=== PATIENT | male | born 1970 | race American Indian/Alaskan Native ===

== ENCOUNTER 2016-09-29 09:20 | Emergency (ER) | payer SELFPAY ==
[2016-09-29 09:46] VITALS: BP 124/71
[2016-09-29] MEDS ORDERED: XYLOCAINE 1% MPF 5 mL INFILTRATI ONE (11:46)
[2016-09-29] MEDS ORDERED: ROCEPHIN IM ONE (11:46)
[2016-09-29] MEDS ORDERED: ZITHROMAX PO ONE (11:47)
--- NOTE | 2016-09-29 11:52 | Emergency Department Report ---
ED Male HPI - General Chief complaint: Urogenital-Male Stated complaint: TREATMENT FOR TRICHOMONIASIS Time Seen by Provider: 09/29/16 11:46 Source: patient Mode of arrival: Ambulatory Limitations: No Limitations - History of Present Illness Initial comments: 46-year-old male past medical history none presents with complaint of exposure to Trichomonas gonorrhea and chlamydia. Patient states that yesterday when of his sex partners called him and informed them that she had been exposed to all 3 and had been treated. Patient denies any discharge no lesions and groin or genital region. States he came in for treatment today as he has a confirmed exposure. Denies any fevers chills abdominal pain no testicular pain. No dysuria no penile lesions no increased urinary frequency reported by the patient. Onset/Timin -: days(s) - Related Data Previous Rx's Medication Instructions Recorded Last Taken Type Hyoscyamine Subl [Levsin Sl] 0.125 mg SL Q4HR PRN #7 tablet 06/24/13 Unknown Rx Promethazine [Phenergan] 25 mg PO Q6H PRN #14 tablet 06/24/13 Unknown Rx metroNIDAZOLE [Flagyl TAB] 500 mg PO Q12HR #14 tab 09/29/16 Unknown Rx Allergies Allergy/AdvReac Type Severity Reaction Status Date / Time No Known Allergies Allergy Unverified 06/24/13 13:38 ED Review of Systems ROS: Stated complaint: TREATMENT FOR TRICHOMONIASIS Other details as noted in HPI Constitutional: denies: chills, fever Eyes: denies: eye pain, eye discharge, vision change ENT: denies: ear pain, throat pain Respiratory: denies: cough, shortness of breath, wheezing Cardiovascular: denies: chest pain, palpitations Endocrine: no symptoms reported Gastrointestinal: denies: abdominal pain, nausea, diarrhea Genitourinary: as per HPI. denies: urgency, dysuria Musculoskeletal: denies: back pain, joint swelling, arthralgia Skin: denies: rash, lesions Neurological: denies: headache, weakness, paresthesias Psychiatric: denies: anxiety, depression Hematological/Lymphatic: denies: easy bleeding, easy bruising ED Past Medical Hx - Past Medical History Previous Medical History?: No - Surgical History Past Surgical History?: No - Social History Smoking Status: Current Every Day Smoker Substance Use Type: Alcohol, Marijuana - Medications Home Medications: Home Medications Medication Instructions Recorded Confirmed Last Taken Type Hyoscyamine Subl [Levsin Sl] 0.125 mg SL Q4HR PRN #7 tablet 06/24/13 Unknown Rx Promethazine [Phenergan] 25 mg PO Q6H PRN #14 tablet 06/24/13 Unknown Rx metroNIDAZOLE [Flagyl TAB] 500 mg PO Q12HR #14 tab 09/29/16 Unknown Rx ED Physical Exam - General Limitations: No Limitations General appearance: alert, in no apparent distress - Head Head exam: Present: atraumatic, normocephalic - Eye Eye exam: Present: normal appearance, PERRL, EOMI - ENT ENT exam: Present: mucous membranes moist - Neck Neck exam: Present: normal inspection - Respiratory Respiratory exam: Present: normal lung sounds bilaterally. Absent: respiratory distress - Cardiovascular Cardiovascular Exam: Present: regular rate, normal rhythm. Absent: systolic murmur, diastolic murmur, rubs, gallop - GI/Abdominal GI/Abdominal exam: Present: soft, normal bowel sounds - Rectal Rectal exam: Present: deferred - exam: Present: normal inspection External exam: Present: normal external exam - Extremities Exam Extremities exam: Present: normal inspection - Back Exam Back exam: Present: normal inspection - Neurological Exam Neurological exam: Present: alert, oriented X3, normal gait - Psychiatric Psychiatric exam: Present: normal affect, normal mood - Skin Skin exam: Present: warm, dry, intact, normal color. Absent: rash ED Course Vital Signs 09/29/16 09:41 Temperature 98.3 F Pulse Rate 63 Respiratory 20 Rate Blood Pressure 124/71 O2 Sat by Pulse 99 Oximetry ED Medical Decision Making - Medical Decision Making A/P: Exposure to Trichomonas, gonorrhea and chlamydia; STD exposure 1-as patient states that his sex partner was confirmed to have all 3 infections yesterday, I will treat patient empirically for all 3 2-Rocephin IM, azithromycin by mouth, metronidazole 7 days 3-I referred patient to primary care and instructed him on safe sex practices 4-patient has no clinical overt signs of infection, will treat based on exposure Critical care attestation.: If time is entered above; I have spent that time in minutes in the direct care of this critically ill patient, excluding procedure time. ED Disposition Clinical Impression: STD exposure Disposition: DISCHARGED TO HOME OR SELFCARE Is pt being admited?: No Does the pt Need Aspirin: No Condition: Stable Instructions: Trichomoniasis (ED), Gonococcal Urethritis (ED), Chlamydia Infection (ED) Prescriptions: metroNIDAZOLE [Flagyl TAB] 500 mg PO Q12HR #14 tab Referrals: PRIMARY CARE, [Primary Care Provider] - 3-5 Days DINA CRESPO MD [Staff Physician] - 3-5 Days Forms: Work/School Release Form(ED) Time of Disposition: 11:54
== END 2016-09-29 11:56 | disposition home or self-care (01) ==
LOC: ED 09:20
DX: Z20.2 Contact with and (suspected) exposure to infections with a predominantly sexual mode of transmission (principal); F17.200 Nicotine dependence, unspecified, uncomplicated; F12.10 Cannabis abuse, uncomplicated
CPT/HCPCS: 96372; 99282; J0696

== ENCOUNTER 2017-05-31 13:57 | Emergency (ER) | payer OTHER ==
--- NOTE | 2017-05-31 14:46 | XRay Report ---
ROUTINE CHEST, TWO VIEWS: HISTORY: Shortness of breath. Patchy infiltrate is identified in the inferior lingula consistent with pneumonia. The remainder of the lungs are clear. No pleural effusion or pneumothorax. Normal heart and mediastinal structures. Normal bony thorax. IMPRESSION: Lingular pneumonia.
[2017-05-31 15:31] LABS: Hemoglobin 12.3 gm/dl (11.8-15.2); Mean Corpuscular HGB Conc 32 % (32-34); Mean Corpuscular Hemoglobin 28 pg (28-32); Mean Corpuscular Volume 87 fl (84-94); Platelet Count 244 K/mm3 (140-440); Red Blood Count 4.38 M/mm3 (3.65-5.03); Red Cell Distribution Width 13.9 % (13.2-15.2); White Blood Count 9.9 K/mm3 (4.5-11.0)
[2017-05-31 15:52] LABS: Anion Gap 19 mmol/L; BUN/Creatinine Ratio 9; Blood Urea Nitrogen 13 mg/dL (9-20); Calcium 9.7 mg/dL (8.4-10.2); Carbon Dioxide 27 mmol/L (22-30); Chloride 97.5 mmol/L (98-107); Glucose 107 mg/dL (75-100); Sodium 138 mmol/L (137-145)
[2017-05-31 16:06] LABS: Basophils % (Manual) 0 % (0.0-1.8); Blastocytes % (Manual) 0 %; Eosinophils % (Manual) 0 % (0.0-4.3)
[2017-05-31 16:08] LABS: Anisocytosis 1+; Diff Status Complete; Large Platelets 1+; Platelet Estimate Cons
[2017-05-31] MEDS ORDERED: TYLENOL PO ONE (17:40)
--- NOTE | 2017-05-31 20:59 | Emergency Department Report ---
ED General Adult HPI - General Chief complaint: Upper Respiratory Infection Stated complaint: POSS. PNUEMONIA Time Seen by Provider: 05/31/17 20:34 Source: patient Mode of arrival: Ambulatory Limitations: No Limitations - History of Present Illness Initial comments: Patient is a 47-year-old -[place]ones[place] male who presents for cough productive yellow-green x 4 weeks, pt with intermittent fever and chills no wheezing no sob, but does endorse generalizesd bodyaches, states 2 children have had colds for past week as well, pt denies dizziness no n/v /d, Complaint: 3 -: week(s) Location: chest, back, abdomen Radiation: non-radiation Severity scale (0 -10): 7 Quality: aching Consistency: intermittent Improves with: rest Worsens with: other (coug ) Associated Symptoms: chest pain (cp with cough ), cough, fever/chills, loss of appetite, malaise. denies: confusion, rash, shortness of breath, syncope, weakness Treatments Prior to Arrival: none - Related Data Previous Rx's Medication Instructions Recorded Last Taken Type Hyoscyamine Subl [Levsin Sl] 0.125 mg SL Q4HR PRN #7 tablet 06/24/13 Unknown Rx Promethazine [Phenergan] 25 mg PO Q6H PRN #14 tablet 06/24/13 Unknown Rx metroNIDAZOLE [Flagyl TAB] 500 mg PO Q12HR #14 tab 09/29/16 Unknown Rx ALBUTEROL Inhaler [ProAir HFA 2 puff IH QID PRN #1 inhalation 05/31/17 Unknown Rx Inhaler] Azithromycin [Zithromax Z-ELPIDIO] 250 mg PO DAILY #6 tablet 05/31/17 Unknown Rx Codeine Phosphate/Guaifenesin 10 ml PO TID PRN #120 ml 05/31/17 Unknown Rx [Guaifenesin-Codeine Syrup] Ibuprofen 800 mg PO TID PRN #30 tablet 05/31/17 Unknown Rx Allergies Allergy/AdvReac Type Severity Reaction Status Date / Time No Known Allergies Allergy Unverified 06/24/13 13:38 ED Review of Systems ROS: Stated complaint: POSS. PNUEMONIA Other details as noted in HPI Constitutional: denies: chills, fever Eyes: denies: eye pain, eye discharge, vision change ENT: denies: ear pain, throat pain Respiratory: denies: cough, shortness of breath, wheezing Cardiovascular: denies: chest pain, palpitations Endocrine: no symptoms reported Gastrointestinal: denies: abdominal pain, nausea, diarrhea Genitourinary: denies: urgency, dysuria Musculoskeletal: denies: back pain, joint swelling, arthralgia Skin: denies: rash, lesions Neurological: denies: headache, weakness, paresthesias Psychiatric: denies: anxiety, depression Hematological/Lymphatic: denies: easy bleeding, easy bruising ED Past Medical Hx - Past Medical History Previous Medical History?: No - Surgical History Past Surgical History?: No - Social History Smoking Status: Current Every Day Smoker - Medications Home Medications: Home Medications Medication Instructions Recorded Confirmed Last Taken Type Hyoscyamine Subl [Levsin Sl] 0.125 mg SL Q4HR PRN #7 tablet 06/24/13 Unknown Rx Promethazine [Phenergan] 25 mg PO Q6H PRN #14 tablet 06/24/13 Unknown Rx metroNIDAZOLE [Flagyl TAB] 500 mg PO Q12HR #14 tab 09/29/16 Unknown Rx ALBUTEROL Inhaler [ProAir HFA 2 puff IH QID PRN #1 inhalation 05/31/17 Unknown Rx Inhaler] Azithromycin [Zithromax Z-ELPIDIO] 250 mg PO DAILY #6 tablet 05/31/17 Unknown Rx Codeine Phosphate/Guaifenesin 10 ml PO TID PRN #120 ml 05/31/17 Unknown Rx [Guaifenesin-Codeine Syrup] Ibuprofen 800 mg PO TID PRN #30 tablet 05/31/17 Unknown Rx ED Physical Exam - General Limitations: No Limitations General appearance: alert, in no apparent distress - Head Head exam: Present: atraumatic, normocephalic - Eye Eye exam: Present: normal appearance, PERRL, EOMI Pupils: Present: normal accommodation, irregular - Expanded ENT Exam Expanded TM/Canal exam: Erythema: Right TM, Left TM, Mastoid Tenderness: Right TM, Left TM Mouth exam: Present: normal external inspection Throat exam: Positive: tonsillar erythema, tonsillomegaly. Negative: tonsillar exudate, R peritonsillar mass, L peritonsillar mass - Neck Neck exam: Present: normal inspection, full ROM. Absent: tenderness, lymphadenopathy, thyromegaly - Respiratory Respiratory exam: Present: rhonchi (clears with cough ), chest wall tenderness ( left lateral chest wall tenderness ). Absent: respiratory distress, wheezes, rales, stridor, decreased breath sounds, prolonged expiratory - Cardiovascular Cardiovascular Exam: Present: normal rhythm, tachycardia, normal heart sounds - GI/Abdominal GI/Abdominal exam: Present: soft, normal bowel sounds. Absent: distended, tenderness, guarding, rebound, rigid, organomegaly, mass, bruit, pulsatile mass , hernia - Rectal Rectal exam: Present: deferred - exam: Present: normal inspection - Extremities Exam Extremities exam: Present: normal inspection - Back Exam Back exam: Present: normal inspection, full ROM, tenderness. Absent: CVA tenderness (R), CVA tenderness (L), muscle spasm, paraspinal tenderness, vertebral tenderness, rash noted - Neurological Exam Neurological exam: Present: alert, oriented X3, CN II-XII intact, normal gait, reflexes normal - Psychiatric Psychiatric exam: Present: normal affect, normal mood - Skin Skin exam: Present: warm, dry, intact, normal color. Absent: rash ED Course Vital Signs 05/31/17 05/31/17 05/31/17 14:12 17:41 18:19 Temperature 101.2 F H 102.1 F H Pulse Rate 75 74 Respiratory 22 14 18 Rate Blood Pressure 130/74 Blood Pressure 135/64 [Left] O2 Sat by Pulse 96 Oximetry ED Medical Decision Making - Lab Data Result diagrams: 05/31/17 14:55 05/31/17 14:55 - Medical Decision Making Patient is a 47-year-old -[place]ones[place] male who presents for cough productive yellow-green x 4 weeks, pt with intermittent fever and chills no wheezing no sob, but does endorse generalized bodyaches, states 2 children have had colds for past week as well, pt denies dizziness no n/v /d, , exam: pt appears well nontoxic ent: bilat tm erythema pain , nose: boggy turbinate erythema clear post nasal drip, pharynx: moderate erythema no exudate no lesions no edema uvula midline no stridor, lungs rhonchi clearing with cough left lateral chest wall tenderness no crepitus no stepoff abd: soft nontender, bs normal pt is currently tolerating po intake without n/v/d cxr : patchy infiltrate, inferior left lower lingula consistent wtih pneumoia, plan: rocephin , dc to home with albuterol, zpack , cheratussin, ibuprofen pt with will hydrate as directed will return to emergency if symptoms worsen, pt verbalized agreement and understanding of same. pt for dc to self in stable condition at this time. Critical care attestation.: If time is entered above; I have spent that time in minutes in the direct care of this critically ill patient, excluding procedure time. ED Disposition Clinical Impression: CAP (community acquired pneumonia) Qualifiers: Laterality: left Lung location: lower lobe of lung Qualified Code(s): J18.1 - Lobar pneumonia, unspecified organism Disposition: DC-01 TO HOME OR SELFCARE Is pt being admited?: No Does the pt Need Aspirin: No Condition: Stable Instructions: Bacterial Pneumonia (ED), Community-acquired Pneumonia (ED) Prescriptions: ALBUTEROL Inhaler [ProAir HFA Inhaler] 2 puff IH QID PRN #1 inhalation PRN Reason: Shortness Of Breath Azithromycin [Zithromax Z-ELPIDIO] 250 mg PO DAILY #6 tablet Codeine Phosphate/Guaifenesin [Guaifenesin-Codeine Syrup] 10 ml PO TID PRN #120 ml PRN Reason: Cough Ibuprofen 800 mg PO TID PRN #30 tablet PRN Reason: fever pain Referrals: JOSE TADEO MD [Primary Care Provider] - 3-5 Days Forms: Work/School Release Form(ED) Time of Disposition: 21:17
[2017-05-31] MEDS ORDERED: ROCEPHIN IM ONE (21:04)
[2017-05-31] MEDS ORDERED: XYLOCAINE 1% MPF 5 mL INFILTRATI ONE (21:04)
[2017-05-31] MEDS ORDERED: MOTRIN PO ONE (21:05)
[2017-05-31 21:25] VITALS: BP 126/74
== END 2017-05-31 21:24 | disposition home or self-care (01) ==
LOC: ED 13:57
DX: J18.1 Lobar pneumonia, unspecified organism (principal); F17.200 Nicotine dependence, unspecified, uncomplicated
CPT/HCPCS: 36415; 71020; 80048; 85007; 85025; 87040; 93005; 93010; 96372; 99284; J0696